=== PATIENT | female | born 1990 | race Caucasian/White ===

== ENCOUNTER 2019-06-12 19:51 | Emergency (ER) | payer MEDICAID, OTHER ==
[2019-06-12] MEDS: POLYETHYLENE GLYCOL 17 GM PACKET PO (22:39)
== END 2019-06-13 00:35 | disposition home or self-care (01) ==
LOC: FTE 06-13 00:35
DX: K59.00 Constipation, unspecified (principal)
CPT/HCPCS: 74019; 81025; 99283-25